=== PATIENT | female | born 1990 | race Caucasian/White ===

== ENCOUNTER 2016-09-05 06:36 | Day surgery (SDC) | payer OTHER ==
[~2016-09-05] VITALS: Ht 167.6 cm; Wt 84.0 kg
[~2016-09-05 06:36] MED LIST: NOHOMEMEDS
[2016-09-05 07:00] VITALS: BP 118/70
[2016-09-05 08:48] LABS: METH RESISTANT S AUREUS PCR NEGATIVE (NEGATIVE)
[2016-09-05 08:58] LABS: PROBE CHECK PASS; SPECIMEN PROCESSING CONTROL PASS
[2016-09-05 10:06] LABS: INTERNAL CONTROL VALID? YES
[2016-09-05 12:40] VITALS: BP 107/58
[2016-09-05 14:01] VITALS: BP 104/63
[2016-09-05 14:59] VITALS: BP 105/52
== END 2016-09-05 15:13 | disposition home or self-care (01) ==
LOC: SDC
PROVIDERS: Surgery Surgical Oncology
PROC: 0HBT0ZX Excision of Right Breast, Open Approach, Diagnostic (ICD-10-PCS; principal; 2016-09-05)
DX: N60.21 Fibroadenosis of right breast (principal); Z87.891 Personal history of nicotine dependence; Z80.3 Family history of malignant neoplasm of breast; Z80.0 Family history of malignant neoplasm of digestive organs; Z88.5 Allergy status to narcotic agent; Z82.49 Family history of ischemic heart disease and other diseases of the circulatory system; Z84.1 Family history of disorders of kidney and ureter; Z83.3 Family history of diabetes mellitus; Z80.7 Family history of other malignant neoplasms of lymphoid, hematopoietic and related tissues
CPT/HCPCS: 84703; 87641; 88307; J0690; J1100; J1170; J1885; J2250; J2405; J2765; J3010; S0020

== ENCOUNTER 2017-12-04 07:03 | Emergency (ER) | payer OTHER ==
[~2017-12-04] VITALS: Ht 167.6 cm; Wt 78.9 kg
[2017-12-04] MEDS ORDERED: FIORICET 50-301 EAC1 PO (09:26)
[2017-12-04 09:40] VITALS: BP 124/74
== END 2017-12-04 09:40 | disposition home or self-care (01) ==
LOC: EME 07:03
DX: G43.909 Migraine, unspecified, not intractable, without status migrainosus (principal); F32.9 Major depressive disorder, single episode, unspecified; J45.909 Unspecified asthma, uncomplicated; Q07.00 Arnold-Chiari syndrome without spina bifida or hydrocephalus; F41.9 Anxiety disorder, unspecified; Z88.5 Allergy status to narcotic agent
CPT/HCPCS: 99281; 99285; J1885; J2765; J7030